=== PATIENT | female | born 1955 | race Caucasian/White ===

== ENCOUNTER 2018-08-31 09:04 | Observation (INO) | payer MEDICAID, OTHER ==
[2018-08-31] MEDS ORDERED: ceFAZolin 2 GM/DEXTROSE 100 ML IV ONE (09:08)
[2018-08-31] MEDS ORDERED: NALOXONE HCL 0.4 MG/ML INJ IVP PRN (09:08)
[2018-08-31] MEDS ORDERED: FLUMAZENIL 0.5 MG/5 ML MDV IVP PRN (09:08)
[2018-08-31] MEDS ORDERED: GLUCAGON HCL 1 MG VIAL IVP PRN (09:08)
[2018-08-31] MEDS ORDERED: MIDAZOLAM 2 MG/2 ML VIAL IVP PRN (09:08)
[2018-08-31] MEDS ORDERED: MEPERIDINE 25 MG/ML SYR IVP PRN (09:08)
[2018-08-31] MEDS ORDERED: NS 1,000 ML IV SCH (09:15)
[2018-08-31 10:09] LABS: INR 1.01 (0.83-1.16); PROTIME(PATIENT) 12.9 SEC (12.0-15.0)
[2018-08-31] MEDS: fentaNYL 100 MCG/2 ML INJ IVP PRN ×2 (10:18→13:35)
[2018-08-31] MEDS ORDERED: GLUCAGON HCL 1 MG VIAL ONE (10:25)
--- NOTE | 2018-08-31 10:48 | PDRADPRE ---
Radiology History & Physical Indication for procedure: cancer Home medications: diphenhydrAMINE [Benadryl 25 MG (OTC)] 25 mg PO Q2-4PRN PRN 09/03/11 [Last Taken 08/31/18 07:00] Allergies/Adverse Reactions: No Known Allergies Allergy (Verified 09/03/11 13:43) Mental status: A&Ox3
--- NOTE | 2018-08-31 10:49 | PDPROPOC ---
Sedation Plan of Care ASA Classification: ASA 3 Mallampati Score: Class 2 Mallampati Reference Image:
[2018-08-31] MEDS ORDERED: IOPAMIDOL (ISOVUE-300) 100 ML BTL ONE (10:57)
[2018-08-31] MEDS ORDERED: LIDOCAINE 2% JELLY 20 ML (UROJECT) ONE (10:57)
[2018-08-31] MEDS ORDERED: ONDANSETRON 4 MG/2 ML VIAL IVP PRN ×2 (11:50→15:51)
--- NOTE | 2018-08-31 11:51 | PDRADPN ---
Radiology Procedure Note Date of Procedure: 08/31/18 Radiologist: Yasmeen Miller Anesthesia: IV Sedation Pre-op Diagnosis: oropharyngeal cancer Post-op Diagnosis: same Procedure: percutaneous g tube placement Inf/Abcess present in the surg proc area at time of surgery?: No
[2018-08-31] MEDS ORDERED: fentaNYL 100 MCG/2 ML INJ ONE (13:32)
[2018-08-31] MEDS: ACETAMINOPHEN 325 MG TAB PO PRN ×2 (14:47→19:36)
--- NOTE | 2018-08-31 15:50 | ASMTCMCOM ---
CM Note CM Note Notes: Patient admitted for G-tube placement for hx of oropharyngeal cancer. She is followed by Dr Lloyd at [facility]. She is normally independent. Discharge needs TBD; Case Management will follow. Date Signed: 08/31/2018 03:49 PM Electronically Signed By:Stephanie Martinez RN
[2018-08-31] MEDS ORDERED: ONDANSETRON DISINTEGRATING 4 MG TAB PO PRN (15:51)
[2018-08-31] MEDS ORDERED: ACETAMINOPHEN 325 MG TAB PO PRN (15:51)
--- NOTE | 2018-08-31 17:27 | PDGENHP ---
History and Physical - Chief Complaint Inability to take p.o. - History of Present Illness Patient is a 63-year-old female with recently diagnosed oral pharyngeal cancer who was admitted for placement of a gastrostomy tube. Patient said she was fine up until a few weeks ago when she noticed some pain with swallowing. This progressed until she noticed some mild swelling in her throat. She eventually was seen at [facility] where she was ultimately diagnosed with an oral pharyngeal cancer by biopsy. She has established care with [facility] with plans to pursue chemo radiation. Today she was referred for placement of a gastrostomy tube by Interventional Radiology. They have asked for admission to ensure the gastrostomy is working appropriately along with a dietary consult to get her started on tube feeds. She currently feels well aside from some mild stomach discomfort at the site of the gastrostomy placement. She does say up until this procedure she was taking food orally by grinding up in a fur clipper and has not had any issues with aspiration. History Information - Allergies/Home Medication List Allergies/Adverse Reactions: No Known Allergies Allergy (Verified 09/03/11 13:43) Home Medications: Multivitamins [Multivitamin (*)] 1 each PO DAILY 08/31/18 [Last Taken 08/30/18] I have personally reviewed and updated: family history, medical history, social history, surgical history - Past Medical History no pertinent PMH - Surgical History Reports: no pertinent surgical hx - Family History Positive for: non-pertinent - Social History Smoking Status: Former smoker Review of Systems Review of Systems: ROS: 10pt was reviewed & negative except for what was stated in HPI & below Physical Exam Physical Exam: Temp Pulse Resp BP Pulse Ox 36.7 C 83 16 139/89 H 93 08/31/18 16:47 08/31/18 16:47 08/31/18 14:53 08/31/18 16:47 08/31/18 16:47 O2 (L/minute) 2 Constitutional: no apparent distress, appears nourished, not in pain Eyes: PERRL, anicteric sclera, EOMI Ears, Nose, Mouth, Throat: moist mucous membranes, hearing normal, ears appear normal, no oral mucosal ulcers Cardiovascular: regular rate and rhythym, no murmur, rub, or gallop, No edema Respiratory: no respiratory distress, no rales or rhonchi, clear to auscultation Gastrointestinal: normoactive bowel sounds, soft, non-tender abdomen, no palpable masses Genitourinary: no bladder fullness, no bladder tenderness Skin: warm, normal color, no rashes or abrasions, no fluctuance, no induration, No mottled Musculoskeletal: full muscle strength, no muscle tenderness, normal joint ROM, no joint effusions Psychiatric: interacting appropriately, not anxious, not encephalopathic, thought process linear Lymph, Heme, Immunologic: no cervical LAD, no supraclavicular LAD Lab Data & Imaging Review 08/31/18 09:45 Hct 37.8 % (38.0-47.0) L 08/31/18 09:45 Plt Count 493 10^3/uL (150-400) H 08/31/18 09:45 PT 12.9 SEC (12.0-15.0) 08/31/18 09:45 INR 1.01 (0.83-1.16) 08/31/18 09:45 APTT 26.4 SEC (23.0-38.0) 08/31/18 09:45 Assessment & Plan Assessment: 63-year-old female with newly diagnosed or pharyngeal cancer admitted for gastrostomy placement. Oropharyngeal cancer-has established care with [facility]. Plans to pursue chemo radiation. Admitted today for gastrostomy placement which has been done successfully. I reviewed the ultrasound from the procedure and appears that was done successfully without complication. Labs unremarkable examination reassuring. -NPO -IV fluids -check labs in the morning -dietary consult -will need to follow up outpatient with [facility] for continuing care Prophylaxis-SCDs, no heparin Electrolytes-none order but will check in the morning Nutrition-NPO, dietary consult placed Cor-full code Dispo-observation
[2018-08-31] MEDS: NS 1,000 ML IV SCH (19:37)
[2018-09-01] MEDS: ACETAMINOPHEN 325 MG TAB PO PRN (04:26)
[2018-09-01 07:54] VITALS: BP 147/87
[2018-09-01] MEDS: NS 1,000 ML IV SCH (08:19)
[2018-09-01] MEDS ORDERED: ENOXAPARIN 40 MG/0.4 ML SYR SC SCH (09:00)
[2018-09-01 09:09] LABS: PLATELET COUNT 516 10^3/uL (150-400)
--- NOTE | 2018-09-01 12:26 | ASMTCMCOM ---
CM Note CM Note Notes: Pt's Chart reviewed for discharge. Lovely from [facility] was here yesterday to Pranav Bennett how to adm her tube feeding. I have spoken to Chicho ([phone]) for [facility] who is wait for notification of the Pt's discharge so he can deliver her tube feeding and equipment. I have also checked with KASANDRA Fernando to make sure Pt can crush meds, administer meds via tube and care fore tube. I have asked that he provide Care note on the topic. Kwame has worked with Pt this morning. CM available if needs arise. PLAN: Home Independently, [facility] to follow. Date Signed: 09/01/2018 12:26 PM Electronically Signed By:Abbi Hwang
--- NOTE | 2018-09-01 17:07 | PDDCSUM ---
Discharge Summary Discharge Summary: Discharge diagnosis Dysphagia Or pharyngeal cancer The patient was admitted for gastrostomy tube placement by Interventional Radiology which was done uneventfully. She was admitted observation overnight to ensure that the gastrostomy tube was functioning properly the following morning. A follow-up CT scan was obtained the following morning and Radiology cleared her for using the G-tube. A dietitian was consulted who saw the patient to make recommendations on starting tube feeds. She was also is being by speech language pathology who recommended continuing to eat orally with a pureed diet. She was discharged home in good condition to follow up with her oncologist. Disposition Home in good condition Follow-up Dr. Lloyd with [facility]
== END 2018-09-01 15:54 | disposition home or self-care (01) ==
LOC: FIMAGING 09:04 → F3E 09:58 → INTOOBSV 09:58 → F1N 11:56
PROVIDERS: ADMIT Radiology Diagnostic Radiology; ATTEND Internal Medicine
PROC: 0DH63UZ Insertion of Feeding Device into Stomach, Percutaneous Approach (ICD-10-PCS; principal; 2018-08-31 12:00)
DX: C10.8 Malignant neoplasm of overlapping sites of oropharynx (principal); R13.10 Dysphagia, unspecified
CPT/HCPCS: 49440; 74150; 92526; 92610; 99152; C1729; C1769; J0690; J1610; J1650; J2250; J2310; J2405; J3010; Q9967